=== PATIENT | male | born 1960 | race Caucasian/White ===

== ENCOUNTER 2016-05-08 13:12 | Outpatient (CLI) | payer MEDICARE ==
[2016-05-08 13:59] LABS: Prothrombin Time 16.8 SEC (12.0-14.7)
== END 2016-05-08 13:13 ==
LOC: HPCALD 13:12
PROVIDERS: ATTEND Family Medicine
DX: Z51.81 Encounter for therapeutic drug level monitoring (principal); Z79.01 Long term (current) use of anticoagulants
CPT/HCPCS: 36415; 85610